=== PATIENT | male | born 1965 | race Caucasian/White ===

== ENCOUNTER 2019-09-15 06:39 | Emergency (ER) | payer OTHER, MEDICAID, SELFPAY ==
[2019-09-15] VITALS (8 sets, daily range): BP systolic 116–154; BP diastolic 53–79; PULSE 61–89; RESP 16–18; TEMP 36.8; O2SAT 96–100
--- NOTE | ~2019-09-15 | XR_ITS ---
EXAMINATION: XR chest 2V DATE: 09/15/2019 07:26 INDICATION: Chest pain. TECHNIQUE: Frontal and lateral views of the chest were obtained. COMPARISON: None. FINDINGS: There is mild atelectasis in right lower lung zone. No pleural effusion or pneumothorax. Th e heart size is normal. IMPRESSION: 1. Mild atelectasis in right lower lung zone. Reviewed, dictated and finalized at location A. S REVIEW CLERK
--- NOTE | 2019-09-15 06:49 | ECG_ITS ---
Measurements Intervals [place] Rate: 87 P: 71 HI: 130 QRS: 32 QRSD: 82 T: 36 QT: 345 QTc: 417 Interpretive Statements SINUS RHYTHM BASELINE ARTIFACT- II, III, AVF NORMAL ECG Electronically Signed On 09-15-2019 6:51:53 MILK TREATER by Joey Finney D.O.
--- NOTE | 2019-09-15 06:53 | ED.CHESTPAIN ---
HPI - Chest Pain General Chief Complaint: Chest Pain Stated Complaint: chest pain Time Seen by Provider: 09/15/19 06:49 History of Present Illness HPI narrative: Chest pain since shortly before arrival to the ED. The pain started when he arrived at work this morning. It was preceded by a breif headacvhe and dizziness. The pain was substernal. Radiated to the back and neck. Associated with heart racing and SOB. He has had similar episodes in the past due t anxiety, but it has never been this severe. He has an extensive gfamily history of heart disease, but he has no personal history. He does have high cholesterol and is a daily smoker. Related Data Allergies Allergy/AdvReac Type Severity Reaction Status Date / Time fentanyl Allergy Unknown Verified 09/15/19 06:45 Review of Systems Review of Systems: All systems reviewed & are unremarkable except as noted in HPI and below Constitutional: Constitutional: Denies chills and Denies fever(s) Cardiovascular: Cardiovascular: Reports chest pain, Reports rapid heart rate and Reports radiating jaw, neck or arm pain Respiratory: Respiratory: Reports dyspnea Gastrointestinal: Gastrointestinal: Denies abdominal pain, Reports nausea and Reports vomiting Neurologic: Reports dizziness and Reports headache(s) [facility] Past Medical History Medical History (Updated 09/15/19 @ 10:09 by Hansel Cheek MD) Anxiety Hyperlipidemia Family History Family History (Updated 09/15/19 @ 07:53 by Hansel Cheek MD) Other Heart disease Social History Social History (Updated 09/15/19 @ 07:53 by Hansel Cheek MD) Smoking status: Current every day smoker Tobacco type: cigarettes Exam Const: General: no acute distress and alert Nutritional Appearance: well nourished Orientation/consciousness: patient oriented x3 HENMT: Head: normal to inspection Eyes: Conjunctivae: conjunctivae normal Pupils: Equal, round and reactive pupils present EOM: EOMs intact bilaterally Neck: Neck: normal visual inspection Chest: Chest palpation & inspection: normal inspection of the chest Resp: Effort & Inspection: normal respiratory effort Auscultation: wheezes expiratory wheezes and throughout Cardio: Rate: regular rate Rhythm: regular rhythm Skin: General skin exam: normal color Neuro: General: patient oriented x3 and moves all extremities Speech: normal speech Extrem: General: no edema Psych: Affect: Anxious affect present Course Vital Signs Vital signs: Vital Signs Temperature 36.8 C 09/15/19 06:39 Pulse Rate 89 09/15/19 06:39 Respiratory Rate 16 09/15/19 06:39 Blood Pressure 154/79 H 09/15/19 06:39 Pulse Oximetry 100 09/15/19 06:39 Temperature 36.8 C 09/15/19 06:39 Pulse Rate 61 09/15/19 09:03 Respiratory Rate 18 09/15/19 09:03 Blood Pressure 120/53 L 09/15/19 09:03 Pulse Oximetry 98 09/15/19 09:03 MDM - Chest Pain MDM Narrative Medical decision making narrative: Symptoms seem most consistent with anxiety, which is supported by his history. He does have multiple risk factors for ACS. EKG is normal. If the baseline and 3 hour troponin are normal I will plan to discharge him. Differential Diagnosis Differential diagnosis: Likely unstable angina pectoris, atypical chest pain and chest pain Medical Records Data Attestation: I reviewed the patient's medical records. Lab Data Attestation: I reviewed the patient's lab results. Result diagrams: 09/15/19 06:54 09/15/19 06:54 Labs: Lab Results 09/15/19 09/15/19 09/15/19 Range/Units 06:54 06:54 06:54 WBC 10.3 H (4.5-10.0) K/mm3 RBC 5.16 (4.6-6.20) M/mm3 Hgb 15.0 (14.0-18.0) g/dL Hct 43.9 (42.0-52.0) % MCV 85.1 (80-100) fl MCH 29.1 (26-34) pg MCHC 34.2 (32-36) g/dl RDW 14.5 (11.5-14.5) % Plt Count 252 (150-375) k/mm3 MPV 10.0 (7.4-10.4) fl Immature Gran % (Auto) 0.4 (0-0.5) % Neut % (Auto)
[2019-09-15 07:01] LABS: Basophils Percent Auto 0.3 % (0.2-1.2); Eosinophils Absolute Auto 0.2 K/mm3 (0-0.3); Eosinophils Percent Auto 1.8 % (0-4.4); Hematocrit 43.9 % (42.0-52.0); Immature Granulocyte Absolute 0.04 K/mm3 (0.00-0.031); Immature Granulocyte Percent A 0.4 % (0-0.5); Lymphocytes Absolute Auto 1.72 K/mm3 (0.9-3.2); Lymphocytes Percent Auto 16.7 % (18.3-44.2); Mean Corpuscular HGB Conc 34.2 g/dl (32-36); Mean Corpuscular Hemoglobin 29.1 pg (26-34); Mean Corpuscular Volume 85.1 fl (80-100); Monocytes Absolute Auto 0.7 K/mm3 (0.1-0.6); Monocytes Percent Auto 6.6 % (2.6-8.5); Neutrophils Absolute Auto 7.6 K/mm3 (1.3-6.7); Neutrophils Percent Auto 74.2 % (45.5-73.1); Platelet Count Result 252 k/mm3 (150-375); Red Blood Count 5.16 M/mm3 (4.6-6.20); Red Cell Distribution Width 14.5 % (11.5-14.5); White Blood Count 10.3 K/mm3 (4.5-10.0)
[2019-09-15 07:09] LABS: INR 0.9
[2019-09-15 07:10] LABS: Partial Thromboplastin Time 29.9 SECONDS (22.3-36.8)
[2019-09-15] MEDS: IPRATROPIUM BR 0.02% INH SOLN 0.5 MG/2.5 ML VIAL INHALATION (07:12)
[2019-09-15] MEDS: ALBUTEROL SULFATE NEB 2.5 MG/0.5 ML INH 5 MG INHALATION (07:12)
[2019-09-15 07:14] LABS: Blood Urea Nitrogen 17 mg/dL (9-20); Calcium 9.3 mg/dL (8.4-10.2); Carbon Dioxide 20 mmol/L (22-30); Chloride 107 mmol/L (98-107); Estimated CRCL calculation 91 ml/min; Estimated Glomerular Filt Rate > 60; Glucose 93 mg/dL (75-110); Potassium 4.6 mmol/L (3.4-5.0); Sodium 139 mmol/L (137-145)
[2019-09-15 07:23] LABS: Troponin I < 0.012 ng/mL (0.000-0.034)
--- NOTE | 2019-09-15 07:28 | PC.NURSE ---
PT BACK FROM RADIOLOGY AT THIS TIME.
[2019-09-15 09:55] LABS: Troponin I < 0.012 ng/mL (0.000-0.034)
== END 2019-09-15 10:19 | disposition home or self-care (01) ==
PROVIDERS: Emergency Provider Emergency Medicine; PCP Internal Medicine
DX: R07.9 Chest pain, unspecified (principal); F17.210 Nicotine dependence, cigarettes, uncomplicated
CPT/HCPCS: 36415; 71046; 80048; 84484; 85025; 85610; 85730; 93005; 94640; 99284

== ENCOUNTER 2022-08-06 16:10 | Observation (INO) | payer OTHER, SELFPAY ==
--- NOTE | ~2022-08-06 | XR_ITS ---
XR chest 2V DATE: 08/06/2022 17:05 INDICATION: Chest pain, shortness of breath and fever today. History of hypertension. TECHNIQUE: PA and lateral chest COMPARISON: PA and lateral chest FINDINGS: Normal heart size. No hilar or mediastinal enlargement is evident. Chronic mild infiltrate, atelectasis or scarring in the right lower lung, not significantly changed s wali 09/15/2019. No new pulmonary infiltrate or consolidation, pleural effusion or pulmonary vascular congestion or pneumothorax is detected. IMPRESSION: No significant change since 09/15/2019 Reviewed, dictated and finalized at location B. ACE [employer]Y [employer]ATHING [employer]PAR[employer]US
--- NOTE | ~2022-08-06 | NM_ITS ---
EXAMINATION: NM natan stress w perfusion DATE: 08/07/2022 12:04 INDICATION: Chest pain TECHNIQUE: Rest images were obtained following intravenous administration of 9.6 mCi Tc99m tetrofosmi n (Myoview). The patient was infused intravenously with Lexiscan (Regadenoson). Then, 31.4 mCi Tc99m tetrofosmin (Myoview) was administered intravenously, and stress images were obtained. Data was recon structed into short axis and horizontal and vertical long axis SPECT images. Gated SPECT images were also obtained. COMPARISON: None. FINDINGS: There is no definite reversible or fixed perfusion abnormality to suggest ischemia or infar ction. There is normal left ventricular chamber size, wall motion and ejection fraction. Left ventr icular ejection fraction measures 65%. IMPRESSION: 1. Normal myocardial perfusion at rest and during stress. 2. Left ventricular ejection fraction measuring 65%. Reviewed, dictated and finalized at location A. DEVELOPER
--- NOTE | ~2022-08-06 | CT_ITS ---
EXAMINATION: CTA chest PE protocol DATE: 08/06/2022 18:32 INDICATION: Pulmonary embolism TECHNIQUE: Computed tomography angiography (CTA) of the chest was performed with 100 mL Omnipaque-350 intravenous contrast timed to evaluate the pulmonary arteries. Coronal maximum intensity projection 3D-reconstructions were created by the technologist. The dose-length product (DLP) was 734.54 mGy-cm. Automated exposure control and iterative reconstruction technique were employed. COMPARISON: None. FINDINGS: Lung parenchyma and airways: Scattered groundglass opacities and reticulations in the right middle lo be and right lower lobe, with volume loss in both. Paraseptal emphysematous change. Pleura: Pleural scarring in the right mid and lower lung. Thoracic inlet, axillae and chest wall: Unremarkable. Thoracic aorta: Mild arch calcification. Mediastinum: Calcified right hilar node. Right hilar lymphadenopathy. Heart and pericardium: Normal. Coronary artery calcifications: Mild. Upper abdomen: No significant finding. Bones: No acute osseous finding. Pulmonary arteries: Study quality: Adequate. No pulmonary emboli detected. Narrowing of the right int erlobar artery. Segmental branches of the right middle lobe and right lower lobe appear chronically t runcated, likely due to postsurgical or posttherapeutic change. IMPRESSION: No CT evidence of acute pulmonary embolus. Postsurgical/post therapeutic change in the right middle l obe and right lower lobe as well as the right hilum. Right middle and right lower lobe scar and groun dglass opacity also possibly secondary to posttherapy change. Right hilar lymphadenopathy. Emphysemat ous change. Reviewed, dictated and finalized at location K. GUARD SKATING RINK IMPRESSION: No CT evidence of acute pulmonary embolus. Postsurgical/post therapeutic change in the right middle lobe and right lower lobe as well as the right hilum. Righ t middle and right lower lobe scar and groundglass opacity also possibly second brandon to posttherapy change. Right hilar lymphadenopathy. Emphysematous change.
--- NOTE | 2022-08-06 16:26 | ECG_ITS ---
Measurements Intervals [place] Rate: 107 P: 68 [place]: 124 QRS: 40 QRSD: 67 T: 47 QT: 293 QTc: 392 Interpretive Statements SINUS TACHYCARDIA POSSIBLE LEFT ATRIAL ENLARGEMENT BASELINE ARTIFACT- V4-V6 ABNORMAL ECG COMPARED TO ECG 09/15/2019 06:44:17 SINUS TACHYCARDIA NOW PRESENT Electronically Signed On 08-06-2022 20:27:55 NAILHEAD OPERATOR by Joey Finney D.O.
[2022-08-06 16:31] VITALS: BP 159/93; RESP 0; O2SAT 100
[2022-08-06 16:32] VITALS: RESP 9; O2SAT 100
--- NOTE | 2022-08-06 16:37 | ED.CHESTPAIN ---
HPI - Chest Pain General Chief Complaint: Chest Pain Stated Complaint: CHEST/BACK PAIN, SOB, FEVER, RASH TO CHEST Time Seen by Provider: 08/06/22 16:24 Source: patient and EMS Mode of arrival: EMS History of Present Illness HPI narrative: Patient is 57 years old white male developed sudden onset of retrosternal chest pain going to his back associated with numbness and tingling of the hands bilaterally with shortness of breath started immediately on arrival to work today. Patient was trying to try sign and at that time. Pain was 6 out of 10, currently 3 out of 10. History of hypertension, hyperlipidemia, smoking, strong family history of coronary artery disease. Patient uses marijuana socially. Patient reports that his mom and 2 of his brothers and sisterS of coronary artery disease. Related Data Allergies Allergy/AdvReac Type Severity Reaction Status Date / Time fentanyl Allergy Unknown Verified 09/15/19 06:45 Review of Systems Review of Systems: All systems reviewed & are unremarkable except as noted in HPI and below PMFSH Past Medical History Medical History Anxiety Hyperlipidemia Family History Family History Other Heart disease Social History Social History Smoking status: Current every day smoker Tobacco type: cigarettes Exam Narrative: General appearance: Well-developed, well-nourished, anxious Skin: Normal color Head: Normocephalic, nontraumatic Eyes: Clear conjunctiva ENT: Oropharynx normal, ears normal, nose normal Neck: Supple, nontender Chest and respiratory: Airway patent, no respiratory distress, no accessory muscle use Heart: Regular rate/rhythm Abdomen: Soft, nontender, no organomegaly, quiet bowel sounds Vascular: Normal peripheral pulses, normal capillary refill. Musculoskeletal: Normal range of motion, nontender back Neurologic: Alert and oriented ?3, [employer] is normal as tested, no gross motor deficit Course Reevaluation(s) Reevaluation #1: Patient feeling much better, 0 out of 10 chest pain, being down in bed, comfortable, asymptomatic Date: 08/06/22 Time: 20:23 Vital Signs Vital signs: Vital Signs Respiratory Rate 0 L 08/06/22 16:31 Blood Pressure 159/93 H 08/06/22 16:31 Pulse Oximetry 100 08/06/22 16:31 Temperature 39.0 C H 08/06/22 16:43 Pulse Rate 103 H 08/06/22 16:43 Respiratory Rate 18 08/06/22 16:43 Blood Pressure 157/76 H 08/06/22 16:43 Pulse Oximetry 100 08/06/22 16:43 Oxygen Delivery Room Air 08/06/22 16:43 MDM - Chest Pain MDM Narrative Medical decision making narrative: Patient 57 years old white male came by ambulance to the emergency room from work complaining of sudden onset of retrosternal chest pain going to his back associated with shortness of breath and numbness tingling of the hands bilaterally. History of anxiety. Pain was 6 out of 10, on arrival 3 out of 10. Physical examination showed no significant abnormality except tachyarrhythmia and restlessness. Vital signs showed temperature of 39.0 with sinus tachycardia. Patient had history of hypertension, hyperlipidemia, tobacco dependence, strong family history of coronary artery disease. Cardiac score is 5. Labs, chest x-ray, EKG, COVID swab ordered. Patient received aspirin, nitroglycerin sublingual, Tylenol. Patient's symptoms improved over 30 minutes to 0 out of 10. Work-up showed EKG showed sinus tachycardia with left atrial enlargement otherwise nonspecific. Blood work-up showed no acute abnormalities. Except elevated D-dimer, CTA P
[2022-08-06 16:43] VITALS: BP 157/76; PULSE 103; RESP 18; TEMP 39; O2SAT 100
[2022-08-06 17:46] LABS: Basophils Percent Auto 0.4 % (0.2-1.2); Eosinophils Absolute Auto 0.1 K/mm3 (0-0.3); Eosinophils Percent Auto 0.8 % (0-4.4); Hematocrit 42.9 % (42.0-52.0); Hemoglobin 14.4 g/dL (14.0-18.0); Immature Granulocyte Absolute 0.03 K/mm3 (0.00-0.031); Immature Granulocyte Percent A 0.4 % (0-0.5); Lymphocytes Absolute Auto 0.23 K/mm3 (0.9-3.2); Mean Corpuscular HGB Conc 33.6 g/dl (32-36); Mean Corpuscular Hemoglobin 28.5 pg (26-34); Mean Platelet Volume 9.5 fl (7.4-10.4); Monocytes Absolute Auto 0.4 K/mm3 (0.1-0.6); Monocytes Percent Auto 5.5 % (2.6-8.5); Neutrophils Absolute Auto 6.8 K/mm3 (1.3-6.7); Neutrophils Percent Auto 89.9 % (45.5-73.1); Platelet Count Result 291 k/mm3 (150-375); Red Blood Count 5.05 M/mm3 (4.6-6.20); Red Cell Distribution Width 13.9 % (11.5-14.5); White Blood Count 7.6 K/mm3 (4.5-10.0)
[2022-08-06 17:56] LABS: Prothrombin Time 13.2 Seconds (11.1-14.7)
[2022-08-06 17:57] LABS: Partial Thromboplastin Time 31.8 SECONDS (22.3-36.8)
[2022-08-06 18:03] LABS: Alanine Aminotransferase 15 U/L (6-50); Albumin Level 4.4 g/dL (3.5-5.1); Alkaline Phosphatase 109 U/L (38-126); Anion Gap 7 mmol/L (8-16); Aspartate Amino Transferase 22 U/L (17-59); Bilirubin,Total 0.6 mg/dL (0.2-1.3); Blood Urea Nitrogen 12 mg/dL (9-20); Calcium 9.2 mg/dL (8.4-10.2); Carbon Dioxide 23 mmol/L (22-30); Chloride 106 mmol/L (98-107); Estimated Glomerular Filt Rate > 60; Glucose 86 mg/dL (65-110); Lipase 42 U/L (23-300); Potassium 4.4 mmol/L (3.4-5.0); Sodium 136 mmol/L (137-145)
[2022-08-06 18:08] LABS: D Dimer 0.65 ug/mL (<0.48)
[2022-08-06] MEDS: LORazepam (*CRX) 0.5 MG TABLET 1 MG PO (18:11)
[2022-08-06] MEDS: ASPIRIN 81 MG CHEWABLE TABLET 324 MG PO (18:12)
[2022-08-06 18:21] LABS: Influenza A QL RT-PCR Negative (Negative); Influenza B QL RT-PCR Negative (Negative); SARS-CoV-2 RNA PCR Positive
[2022-08-06 18:29] LABS: Troponin I < 0.012 ng/mL (0.000-0.034)
--- NOTE | 2022-08-06 19:59 | PM.IMHP ---
H&P: HPI History of Present Illness Date/Time: 08/06/22 19:59 Chief Complaint: Chest pain Narrative: This is a 57-year-old male with past medical history significant for tobacco dependence, patient has lost 3 siblings in the past 7 months secondary to heart disease. Presents to the emergency room after having episode of retrosternal chest pain with radiation to the back in between shoulder blades at the time of my visit he rated a 1/10 in intensity pain is nonreproducible, no alleviating factor no exacerbating factors, has lasted for most of the day, has had some sweats and fever, tested positive for COVID while in the emergency room has had cough productive of clear phlegm denies shortness of breath, no nausea, no vomiting, no palpitations, no syncope or near syncope no PND, no orthopnea. Preliminary workup was significant for: Serology was positive for COVID-19. A chest x-ray was reported as; FINDINGS: Normal heart size. No hilar or mediastinal enlargement is evident. Chronic mild infiltrate, atelectasis or scarring in the right lower lung, not significantly changed since 09/15/2019. No new pulmonary infiltrate or consolidation, pleural effusion or pulmonary vascular congestion or pneumothorax is detected.? IMPRESSION: No significant change since 09/15/2019? A CT angio of the chest PE protocol was reported as: FINDINGS: Normal heart size. No hilar or mediastinal enlargement is evident. Chronic mild infiltrate, atelectasis or scarring in the right lower lung, not significantly changed since 09/15/2019. No new pulmonary infiltrate or consolidation, pleural effusion or pulmonary vascular congestion or pneumothorax is detected.? IMPRESSION: No significant change since 09/15/2019? Review of Systems Review of Systems: Chest pain, fevers, sweats, cough productive of clear phlegm. Constitutional: Constitutional: Reports fever(s), Reports night sweats and Reports poor appetite Eyes: Eyes: Denies change in vision ENT: Denies dysphagia, Denies vertigo, Denies dizziness and Denies odynophagia Cardiovascular: Cardiovascular: Reports chest pain, Denies irregular heart rhythm, Denies leg edema, Denies lightheadedness, Denies radiating jaw, neck or arm pain and Denies palpitations Respiratory: Respiratory: Reports cough (Productive of clear phlegm) and Denies dyspnea Gastrointestinal: Gastrointestinal: Denies abdominal pain, Denies dyspepsia, Denies heartburn, Denies diarrhea, Denies nausea and Denies vomiting Genitourinary: Genitourinary: Denies dysuria Musculoskeletal: Musculoskeletal: Denies back pain, Denies myalgias, Denies joint swelling and Denies muscle weakness Integumentary/Breasts: Skin/Breast: Denies rash Neurologic: Denies focal weakness and Denies Sensory deficit (Neuro) Psychiatric: Psychiatric: Reports no additional psychiatric complaints and Reports as per HPI Endocrine: Endocrine: Denies cold intolerance, Denies flushing, Denies heat intolerance, Denies polyphagia, Denies polydipsia and Denies palpitations Hematologic/Lymphatic: Hematologic/Lymphatic: Reports no additional hematologic/lymphatic complaints and Reports as per HPI Allergic/Immunologic: Allergic/Immunologic: Reports no additional allergic/immunologic complaints and Reports as per HPI PMFSH Past Medical History Medical History (Updated 08/06/22 @ 22:15 by Vernell Oden MD) Anxiety Hyperlipidemia Family History Family History Other Heart disease Social History Social History Smoking status: Current every day smoker Tobacco type: cigarettes Meds Home Medications and Allergies Allergies Allergy/AdvReac Type Severity Reaction Status Date / Time fentanyl Allergy Unknown Verified 09/15/19 06:45 Vital Signs Vital Signs - 24 hr 08/06/22 16:43 08/06/22 16:31 Temperature 102.2 F H Pulse Rate 103 H Respiratory Rate 18 0 L
[2022-08-06] MEDS: ACETAMINOPHEN 325 MG TABLET 650 MG PO (20:00)
[2022-08-06] MEDS: IBUPROFEN 600 MG TABLET PO (20:01)
[2022-08-06 20:06] LABS: Troponin I < 0.012 ng/mL (0.000-0.034)
[2022-08-06 20:30] VITALS: TEMP 36.7
[2022-08-06 22:40] VITALS: BP 124/76; PULSE 72; RESP 16; TEMP 36.7; TEMP 36.9; O2SAT 97
[2022-08-06 23:00] VITALS: BP 109/60; PULSE 77; RESP 20; TEMP 36.4; O2SAT 100
[2022-08-06 23:10] VITALS: BMI 25.0
[2022-08-06 23:35] LABS: Troponin I < 0.012 ng/mL (0.000-0.034)
--- NOTE | 2022-08-06 23:57 | ADMGEN ---
This patient, Malik Jimenez, was admitted to IMU Room 212-01. Patient/family oriented to hospital policies and general routines including ID bracelet, bed and alarms, visiting hours, pain management, procedures, bathroom and other care routines, personal items, smoking policy, room service/diet, and visiting hours. Information on how to activate the Rapid Response Team has been discussed. Patient/Family are encouraged to report perceived risks to care and to ask questions if they do not understand what they are told or what they should do.
[2022-08-07] VITALS (9 sets, daily range): BP systolic 107–158; BP diastolic 52–80; PULSE 62–103; RESP 14–20; TEMP 37–37.4; O2SAT 97–100
--- NOTE | 2022-08-07 07:57 | PM.IMPN ---
Progress Note: A&P Assessment and Plan (1) Chest pain: Code(s): R07.9 - Chest pain, unspecified Status: Acute Assessment and Plan: Admit to IMU Ruled out for acute pulmonary embolism Will do serial troponins A stress test in a.m. EKG reviewed Chest x-ray reviewed (2) COVID: Code(s): U07.1 - COVID-19 Status: Acute Assessment and Plan: Supportive care (3) Tobacco dependence: Code(s): F17.200 - Nicotine dependence, unspecified, uncomplicated Status: Acute Assessment and Plan: Patient is and the process of quitting Nicotine patch as needed (4) Anxiety: Code(s): F41.9 - Anxiety disorder, unspecified Status: Acute Assessment and Plan: Continue bupropion Subjective Date/time seen: 08/07/22 07:57 Exam Narrative: General: No acute distress.? Well-developed and well-groomed? Mental Status/Psych: Awake, alert and oriented to person and place with clear speech. Neutral mood and affect. Pleasant and cooperative. Skin: Skin fair, warm, dry and intact without rashes or lesions. No open wounds. Good turgor.? HEENT: Normocephalic. Conjunctivae are clear. Sclera is non-icteric. EOM intact. PERRL. Grossly normal hearing. Oral mucosa pink and moist. Tongue midline. Oropharynx within normal limits. Neck: Supple. Thyroid without nodularity. Trachea midline. No JVD. Heart: S1 and S2 regular rate and rhythm. No murmurs, gallops, or rubs auscultated. Chest: Respirations even and unlabored. Lung sounds are clear to auscultation in all lobes bilaterally without wheezes, rhonchi, or rales. Abdomen: Soft, round and non-tender to palpation.? Bowel sounds present in all 4 quadrants. Extremities:? Grossly normal ROM all extremities. No edema. Radial and dorsalis pedis pulses +2 bilaterally. Neurological: No focal deficits. Cranial nerves 2-12 grossly intact.? Objective Data Vital Signs Vital Signs: Vital Signs - 24 hr 08/06/22 16:43 08/06/22 16:31 08/06/22 20:30 Temperature 102.2 F H 98.0 F Pulse Rate 103 H Respiratory Rate 18 0 L Blood Pressure 157/76 H 159/93 H Pulse Oximetry 100 100 Oxygen Delivery Room Air 08/06/22 22:40 08/06/22 16:32 08/06/22 23:00 Temperature 98.5 F 97.5 F L Pulse Rate 77 Respiratory Rate 9 L 20 Blood Pressure 109/60 Pulse Oximetry 100 100 Oxygen Delivery 08/07/22 00:00 08/07/22 00:00 08/06/22 22:40 Temperature 98.0 F Pulse Rate 74 72 72 Respiratory Rate 20 16 Blood Pressure 124/76 Pulse Oximetry 100 97 Oxygen Delivery Room Air 08/07/22 02:00 08/07/22 04:00 08/07/22 04:00 Temperature 98.6 F Pulse Rate 62 85 70 Respiratory Rate 20 Blood Pressure 107/57 L Pulse Oximetry 97 Oxygen Delivery 08/07/22 04:00 08/07/22 06:00 Temperature Pulse Rate 70 86 Respiratory Rate 20 Blood Pressure Pulse Oximetry 100 Oxygen Delivery Room Air Intake/Output Intake/Output: Intake & Output 08/04/22 08/05/22 08/06/22 08/07/22 23:59 23:59 23:59 23:59 Intake Total 200 Balance 200 Meds/Results Medications: Active Medications Generic Name Dose Route Start Last Admin Trade Name Freq PRN Reason Stop Dose Admin Acetaminophen 650 mg 08/06/22 20:31 Acetaminophen 325 Mg Tablet PO Q4H PRN Mild Pain (1-3) or Fever Amlodipine Besylate 5 mg 08/07/22 09:00 Amlodipine Besylate 5 Mg Tablet PO DAILY [facility] Aspirin 81 mg 08/07/22 09:00 Aspirin 81 Mg Enteric Tablet PO QAM [facility] Atorvastatin Calcium 20 mg 08/07/22 18:00 Atorvastatin 20 Mg Tablet PO QPM [facility] Bupropion HCl 100 mg 08/07/22 09:00 Bupropion Hcl Sr (12hr) 100 Mg Tabcr PO Q12H [facility] Nitroglycerin 0.4 mg 08/06/22 16:52 Nitroglycerin Sl 0.4 Mg Tablet SUBLINGUAL Q5MIN PRN Chest Pain Ondansetron HCl 4 mg 08/07/22 07:10 Ondansetron Inj 4 Mg/2 Ml Vial IV PUSH Q4H PRN Nausea And Vomiting Radiology Results: ITS Impressions
[2022-08-07 08:22] LABS: CRP 3.4 mg/dL (<1.0); Cholesterol 207 mg/dL (0-200); HDL Direct 31 mg/dL; Triglycerides 91 mg/dL (<150)
[2022-08-07 08:30] LABS: LDL Cholesterol Direct 123 mg/dL
[2022-08-07 08:38] LABS: Hemoglobin A1C 5.3 % (<5.7)
[2022-08-07] MEDS: buPROPion HCL SR (12HR) 100 MG TABCR PO (09:25)
[2022-08-07] MEDS: amLODIPine BESYLATE 5 MG TABLET PO (09:25)
[2022-08-07] MEDS: ASPIRIN 81 MG ENTERIC TABLET PO (09:25)
--- NOTE | 2022-08-07 16:14 | PM.DS ---
DS: Admitting Diagnosis Discharge Date 08/07/2022 1601 Admitting Diagnosis Chest pain COVID19 infection DS: Discharge Diagnosis Discharge Diagnosis (1) Chest pain: Code(s): R07.9 - Chest pain, unspecified Status: Acute (2) COVID: Code(s): U07.1 - COVID-19 Status: Acute (3) Tobacco dependence: Code(s): F17.200 - Nicotine dependence, unspecified, uncomplicated Status: Chronic (4) Anxiety: Code(s): F41.9 - Anxiety disorder, unspecified Status: Acute DS: Summary Hospital Course Reason for hospitalization: chest pain Hospital Course: Malik Jimenez is a 57-year-old male with tobacco dependence and self-reported anxiety. He presented to the ED for evaluation of substernal chest pain with radiation to his back between shoulder blades for approximately one day. The pain did not radiate to his neck, jaw or down either arm. The pain is nonreproducible and without exacerbating or alleviating factors. No dizziness, abd pain, N/V/D, palpitations, syncope, near syncope, orthopnea or PND. He reported associated cough with clear phlegm, some sweating and subjective fever. He also reported anxiety and loss of 3 siblings in the past 7 months secondary to heart disease.?In the ED, he tested positive for SARS-COV2. Chest x-ray showed chronic mild infiltrate/scarring of the right lower lung unchanged from 09/15/2019 and no new acute disease. CTA chest was negative for PE. EKG showed sinus tachycardia without ischemic changes. He was treated with full strength aspirin, sublingual nitroglycerin x1, and 1000 mg acetaminophen. Vitals in ED showed temp 39C, HR 103, RR 18, BP 157/76 and spO2 100% room air. She was admitted to IMU for further evaluation of chest pain. He was placed in covid19 specific isolation. He did not require supplemental O2 and therefore Remdesivir and dexamethasone were not initiated. He was unvaccinated for covid19 and was counseled on obtaining vaccination at discharge. Serial troponin I were obtained and remained within normal limits x 3. CBC and CMP were unremarkable. CRP was mildly elevated 3.4. Lipid panel showed triglycerides 91, LDL 123, and HDL 31. Apo B was drawn but pending at the time of discharge. ASCVD 10-year risk was 27% and lifetime risk 69%. He was counseled on risk factors, quitting smoking and lifestyle changes. Lipitor was increased to 40 mg PO daily. Amlodipine was initially increased, however, repeat blood pressures were less than 120/80 and therefore this medication was continued at the same dose. He was counseled on resuming Wellbutrin for smoking cessation and Buspar 7.5 mg PO BID was added for anxiety. He reported anxiety was notably centered around fear of from heart disease. He denied suicidal or homicidal ideation. NM Lexiscan was obtained and negative for ST/T-wave changes or ischemia. Telemetry was negative for arrhythmia. He was ambulated in his room by nursing prior to discharge and did not have desaturation or c/o dyspnea. He reported readiness for discharge and was discharged home in stable condition. He was counseled on supportive care and quarantine for COVID19. Time spent discussing smoking cessation with patient: more than 10 minutes Status at Discharge Cognitive/behavioral status at discharge: Awake, AOx4. Functional status at discharge: independent ambulation Overall status at discharge: patient is back to baseline Time Spent with Patient Time attestation: Total time spent providing and/or coordinating discharge services: Time spent: Greater than 30 minutes Exam Narrative: General:?No acute respiratory distress. Well developed adult male. Temp 98.7F, HR 103, RR 18, BP 127/70, spO2 98% room air. HEENT:??Normocephalic. Pupils equal and round. Sclera anicteric. Mucous membranes moist. Neck:??No JVD. Supple without lymphadenopathy. Respiratory:?Lungs sounds clear to auscultation bilaterally. RR unlabored at rest. Cardiovascular:??Regular rate
--- NOTE | 2022-08-07 22:18 | EST_ITS ---
Patient Info Name: Malik Jimenez Age: 57 years : 1965 Gender: Male Ht: 68 in Wt: 185 lbs BSA: 2.03 m2 HR: 90 bpm BP: 149 / 72 mmHg Heart Rhythm: Sinus Rhythm Exam Date: 08/07/2022 11:21 AM Exam Location: [facility] Stress Patient Status: Inpatient Admit Date: 08/06/2022 Staff Ordering Physician: Vernell Oden MD Attending Provider: Vernell Oden MD Exercise Technologist: Andreina Edge CT Nurse: JOHNNY BARNES Exam Type: CA stress natan w NM Study Info Indications R07.9 - Chest pain, unspecified A regadenoson stress test was performed. Summary 1. No abnormal ST/T wave changes diagnostic of ischemia with Lexiscan. 2. Please correlate with nuclear medicine images, reported separately. Protocol: Lexiscan Stress ECG Details Stage: REST Duration (min): 0 min : 45 sec HR (bpm): 91 SBP (mmHg): 149 DBP (mmHg): 72 Stage: REST Duration (min): 5 min : 27 sec HR (bpm): 93 SBP (mmHg): 149 DBP (mmHg): 72 Stage: STAGE 1 Duration (min): 0 min : 59 sec HR (bpm): 114 SBP (mmHg): 142 DBP (mmHg): 56 Stage: RECOVERY Duration (min): 1 min : 0 sec HR (bpm): 112 SBP (mmHg): 142 DBP (mmHg): 56 Stage: RECOVERY Duration (min): 2 min : 0 sec HR (bpm): 114 SBP (mmHg): 142 DBP (mmHg): 56 Stage: RECOVERY Duration (min): 3 min : 0 sec HR (bpm): 119 SBP (mmHg): 138 DBP (mmHg): 58 Stage: RECOVERY Duration (min): 3 min : 27 sec HR (bpm): 110 SBP (mmHg): 138 DBP (mmHg): 58 Rest HR: 93 bpm Peak HR: 119 bpm Rest Sys BP: 149 mmHg Peak Sys BP: 142 mmHg Max Pred HR: 164 bpm % Max Pred HR: 73 % Target HR: 139 bpm Max RPP: 16,898 bpm*mmHg Total Time: 1 min : 0 sec Rest [place] BP: 72 mmHg Peak [place] BP: 56 mmHg Total Dose: 0.4 mg Resting ECG Sinus rhythm. Stress ECG Sinus tachycardia. No abnormal ST/T wave changes diagnostic of ischemia with Lexiscan. Arrhythmias None. Report Signatures
[2022-08-11 20:13] LABS: Apolipoprotein B 117 mg/dL (<90)
== END 2022-08-07 18:01 | disposition home or self-care (01) ==
LOC: ANHED 20:31 → ANHIMU 08-07 00:13
PROVIDERS: Nurse Practitioner Family; Admitting Provider Internal Medicine; Emergency Provider Emergency Medicine; PCP Internal Medicine; Visit Provider Student in an Organized Health Care Education/Training Program
DX: R07.9 Chest pain, unspecified (principal); U07.1 COVID-19; F41.9 Anxiety disorder, unspecified; I10 Essential (primary) hypertension; E78.5 Hyperlipidemia, unspecified; R00.0 Tachycardia, unspecified; R20.0 Anesthesia of skin; R20.2 Paresthesia of skin; R91.8 Other nonspecific abnormal finding of lung field; I70.0 Atherosclerosis of aorta; R59.0 Localized enlarged lymph nodes; R94.31 Abnormal electrocardiogram [ECG] [EKG]; F17.210 Nicotine dependence, cigarettes, uncomplicated; F12.90 Cannabis use, unspecified, uncomplicated; Z82.49 Family history of ischemic heart disease and other diseases of the circulatory system
CPT/HCPCS: 36415; 71046; 71275; 78452; 80053; 80061; 82172; 83036; 83690; 84484; 85025; 85380; 85610; 85730; 86140; 87636; 93005; 93017; 99285; A9270; A9502; G0378; G0379; J2785; Q9967

== ENCOUNTER 2022-08-12 11:28 | Emergency (ER) | payer OTHER, SELFPAY ==
--- NOTE | ~2022-08-12 | XR_ITS ---
EXAMINATION: XR chest 2V DATE: 08/12/2022 12:38 INDICATION: Shortness of breath. TECHNIQUE: Frontal and lateral views of the chest were obtained. COMPARISON: Chest 2 views 08/06/2022, 09/15/2019, chest CT 08/06/2022 FINDINGS: There are mild airspace opacities in right mid and lower lung zones, stable from 09/15/2019. No pleural effusion or pneumothorax. The heart size is normal. Calcified right hilar lymph nodes are consistent with old granulomatous disease. IMPRESSION: 1. Mild chronic lung disease in right mid and lower lung zones, stable from 09/15/19. Reviewed, dictated and finalized at location A. SSEMBLY SUPERVISOR IMPRESSION: 1. Mild chronic lung disease in right mid and lower lung zones, stable from 08/23 12/08.
[2022-08-12 12:03] VITALS: BP 159/75; PULSE 74; RESP 20; TEMP 36.6; O2SAT 100
--- NOTE | 2022-08-12 12:07 | ECG_ITS ---
Measurements Intervals [place] Rate: 70 P: 74 [place]: 107 QRS: 53 QRSD: 73 T: 47 QT: 383 QTc: 416 Interpretive Statements SINUS RHYTHM WITH SHORT [place] INTERVAL BASELINE ARTIFACT- I, III, AVR, AVL, AVF, V1 BORDERLINE ECG COMPARED TO ECG 08/06/2022 16:31:41 SINUS RHYTHM NOW PRESENT Electronically Signed On 08-12-2022 14:06:47 PHYSIOLOGIST by Joey Finney D.O.
[2022-08-12 12:41] LABS: Basophils Percent Auto 0.2 % (0.2-1.2); Eosinophils Absolute Auto 0.1 K/mm3 (0-0.3); Eosinophils Percent Auto 1.6 % (0-4.4); Hematocrit 47.4 % (42.0-52.0); Immature Granulocyte Absolute 0.01 K/mm3 (0.00-0.031); Immature Granulocyte Percent A 0.2 % (0-0.5); Lymphocytes Absolute Auto 1.14 K/mm3 (0.9-3.2); Lymphocytes Percent Auto 25.4 % (18.3-44.2); Mean Corpuscular HGB Conc 33.8 g/dl (32-36); Mean Corpuscular Hemoglobin 28.4 pg (26-34); Mean Corpuscular Volume 84.2 fl (80-100); Monocytes Absolute Auto 0.3 K/mm3 (0.1-0.6); Monocytes Percent Auto 7.1 % (2.6-8.5); Neutrophils Absolute Auto 2.9 K/mm3 (1.3-6.7); Neutrophils Percent Auto 65.5 % (45.5-73.1); Platelet Count Result 196 k/mm3 (150-375); Red Blood Count 5.63 M/mm3 (4.6-6.20); Red Cell Distribution Width 13.9 % (11.5-14.5); White Blood Count 4.5 K/mm3 (4.5-10.0)
[2022-08-12 12:53] LABS: Alanine Aminotransferase 22 U/L (6-50); Alkaline Phosphatase 94 U/L (38-126); Anion Gap 6 mmol/L (8-16); Aspartate Amino Transferase 30 U/L (17-59); Bilirubin,Total 0.5 mg/dL (0.2-1.3); Blood Urea Nitrogen 14 mg/dL (9-20); Calcium 8.6 mg/dL (8.4-10.2); Carbon Dioxide 25 mmol/L (22-30); Chloride 107 mmol/L (98-107); Estimated CRCL calculation 87 ml/min; Estimated Glomerular Filt Rate > 60; Glucose 98 mg/dL (65-110); Potassium 4.3 mmol/L (3.4-5.0); Sodium 138 mmol/L (137-145)
--- NOTE | 2022-08-12 15:02 | ED.SOB ---
HPI - SOB/Dyspnea General Chief Complaint: Shortness of Breath/Dyspnea Stated Complaint: covid+, sob Time Seen by Provider: 08/12/22 14:23 History of Present Illness HPI Narrative: 57-year-old male with a history of hypertension, hyperlipidemia, 30+ years tobacco use presenting with shortness of breath. Patient states that he was diagnosed with COVID-19 approximately 5 days ago. He was admitted at that time and underwent a stress test and had a CT of his chest. He was able to be discharged home after everything looked good. States that he has been improving overall. States that last night he had an episode of feeling very short of breath while in bed. States that he had to sit up and take several deep breaths. States that this happened again this morning. He denies any chest pain, palpitations, lightheadedness. States that he was just concerned that he might be going in the wrong direction with his COVID. No fevers or chills, abdominal pain, nausea or vomiting, diarrhea, leg swelling, leg pain. Related Data Home Medications Medication Instructions Recorded Confirmed amlodipine 5 mg tablet 5 mg PO DAILY 08/06/22 08/06/22 bupropion HCl 100 mg tablet,12 hr 100 mg PO Q12H 08/06/22 08/06/22 sustained-release Allergies Allergy/AdvReac Type Severity Reaction Status Date / Time fentanyl Allergy Unknown Verified 09/15/19 06:45 Review of Systems Review of Systems: All systems reviewed & are unremarkable except as noted in HPI and below PMFSH Past Medical History Medical History Anxiety Hyperlipidemia Family History Family History Mother Heart disease Father Heart disease Sibling Heart disease Social History Social History Smoking packs per day: 1 Smoking cigarettes per day: 20.0 Smoking status: Current every day smoker Tobacco type: cigarettes Drinks per week: 2 Substance use: never Substance use type: does not use Lack of Transportation: No Lack of Food: Never True Current Housing: I Have Housing Concerned About Future Housing: No Difficulty Paying Gas/Electric Bills: No Difficulty Paying for Meds: No Currently Unemployed: No Education: High School Diploma/GED Difficulty w/ Childcare or Family Care: No Spiritual care concerns: No Exam Narrative: GENERAL: Well-appearing, well-nourished, and in no acute distress. HEAD: Normocephalic, atraumatic. EYES: PERRLA and EOMI. ENT: Nares clear, no rhinorrhea or epistaxis. Mucous membranes moist. NECK: Supple. CHEST: Diminished breath sounds especially in the bases with minimal air movement, no wheezing HEART: Regular rate and rhythm. No murmur heard. Normal peripheral pulses. ABDOMEN: Soft, nontender, nondistended, normal active bowel sounds. EXTREMITIES: Normal range of motion. No edema. SKIN: Dry flaking skin bilateral lower extremities and upper extremities NEURO: No focal deficits. Alert and oriented x3. PSYCH: Normal mood and affect. Course Vital Signs Vital signs: Vital Signs Temperature 98 F 08/12/22 12:03 Pulse Rate 74 08/12/22 12:03 Respiratory Rate 20 08/12/22 12:03 Blood Pressure 159/75 H 08/12/22 12:03 Pulse Oximetry 100 08/12/22 12:03 Oxygen Delivery Room Air 08/12/22 12:03 Temperature 98 F 08/12/22 12:03 Pulse Rate 67 08/12/22 18:08 Respiratory Rate 18 08/12/22 18:08 Blood Pressure 140/78 08/12/22 18:08 Pulse Oximetry 99 08/12/22 18:08 Oxygen Delivery Room Air 08/12/22 12:03 MDM - SOB/Dyspnea MDM Narrative Medical decision making narrative: Patient is a 57-year-old male presenting with 2 episodes of dyspnea in the setting of recent COVID diagnosis. Patient is hypertensive, though his vitals are within normal limits. He is saturating 100% on room air. Exam is remarkable for diminish
[2022-08-12 15:49] VITALS: PULSE 69; RESP 14
[2022-08-12] MEDS: ALBUTEROL SULFATE NEB 2.5 MG/3 ML INH 5 MG INHALATION (15:49)
[2022-08-12] MEDS: IPRATROPIUM BR 0.02% INH SOLN 0.5 MG/2.5 ML VIAL INHALATION (15:49)
[2022-08-12 16:17] VITALS: PULSE 80; RESP 15
[2022-08-12 18:08] VITALS: BP 140/78; PULSE 67; RESP 18; O2SAT 99
== END 2022-08-12 18:10 | disposition home or self-care (01) ==
PROVIDERS: Emergency Medicine; Emergency Provider Emergency Medicine; PCP Internal Medicine
DX: U07.1 COVID-19 (principal); R06.02 Shortness of breath; I10 Essential (primary) hypertension; E78.5 Hyperlipidemia, unspecified; F41.9 Anxiety disorder, unspecified; F17.210 Nicotine dependence, cigarettes, uncomplicated; J84.9 Interstitial pulmonary disease, unspecified
CPT/HCPCS: 36415; 71046; 80053; 85025; 93005; 94640; 99284

== ENCOUNTER 2023-08-17 08:06 | Emergency (ER) | payer OTHER, SELFPAY ==
[2023-08-17] VITALS (14 sets, daily range): BP systolic 132–143; BP diastolic 71–79; PULSE 61–72; RESP 12–24; TEMP 36.6; O2SAT 99–100
--- NOTE | 2023-08-17 08:06 | ECG_ITS ---
Measurements Intervals [place] Rate: 67 P: 76 [place]: 118 QRS: 25 QRSD: 82 T: 36 QT: 374 QTc: 397 Interpretive Statements SINUS RHYTHM WITH SHORT IN INTERVAL BORDERLINE ECG COMPARED TO ECG 08/12/2022 12:20:57 NO SIGNIFICANT CHANGES Electronically Signed On 08-17-2023 11:01:48 TRUSS MAKER by Joey Finney D.O.
[2023-08-17 08:22] LABS: Basophils Percent Auto 0.4 % (0.2-1.2); Eosinophils Absolute Auto 0.1 K/mm3 (0-0.3); Eosinophils Percent Auto 1.1 % (0-4.4); Hematocrit 42.3 % (42.0-52.0); Hemoglobin 13.5 g/dL (14.0-18.0); Immature Granulocyte Absolute 0.02 K/mm3 (0.00-0.031); Immature Granulocyte Percent A 0.2 % (0-0.5); Lymphocytes Absolute Auto 1.44 K/mm3 (0.9-3.2); Lymphocytes Percent Auto 15.9 % (18.3-44.2); Mean Corpuscular HGB Conc 31.9 g/dl (32-36); Mean Corpuscular Hemoglobin 28.2 pg (26-34); Mean Corpuscular Volume 88.5 fl (80-100); Mean Platelet Volume 9.5 fl (7.4-10.4); Monocytes Absolute Auto 0.6 K/mm3 (0.1-0.6); Monocytes Percent Auto 6.7 % (2.6-8.5); Neutrophils Absolute Auto 6.8 K/mm3 (1.3-6.7); Neutrophils Percent Auto 75.7 % (45.5-73.1); Platelet Count Result 276 k/mm3 (150-375); Red Blood Count 4.78 M/mm3 (4.6-6.20); Red Cell Distribution Width 14.2 % (11.5-14.5)
[2023-08-17 08:33] LABS: Alanine Aminotransferase 13 U/L (6-50); Albumin Level 3.8 g/dL (3.5-5.1); Alkaline Phosphatase 92 U/L (38-126); Anion Gap 7 mmol/L (8-16); Aspartate Amino Transferase 22 U/L (17-59); Bilirubin,Total 0.3 mg/dL (0.2-1.3); Blood Urea Nitrogen 13 mg/dL (9-20); Calcium 9.1 mg/dL (8.4-10.2); Carbon Dioxide 25 mmol/L (22-30); Chloride 108 mmol/L (98-107); Estimated CRCL calculation 72 ml/min; Estimated Glomerular Filt Rate > 60; Glucose 93 mg/dL (65-110); Potassium 5.4 mmol/L (3.4-5.0); Sodium 140 mmol/L (137-145)
[2023-08-17] MEDS: SODIUM CHLORIDE 0.9% IV 1,000 ML 999 ML IV CONT (08:55)
[2023-08-17] MEDS: MECLIZINE HCL 25 MG TABLET PO (08:55)
--- NOTE | 2023-08-17 10:24 | ED.GENADULT ---
HPI - General Adult General Chief complaint: Syncope Stated complaint: sudden onset dizziness, blurred vision Time Seen by Provider: 08/17/23 08:09 History of Present Illness HPI narrative: Patient is a 58-year-old male who presents ER with dizziness. 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 He felt slightly flushed. No vomiting. No diaphoresis. Short lived. It is reproduced by turning his head to the right at this time. No chest pain or chest pressure. No focal weakness or numbness to any arm or leg. No slurred speech. Related Data Home Medications Medication Instructions Recorded Confirmed amlodipine 5 mg tablet 5 mg PO DAILY 08/06/22 08/06/22 bupropion HCl 100 mg tablet,12 hr 100 mg PO Q12H 08/06/22 08/06/22 sustained-release Allergies Allergy/AdvReac Type Severity Reaction Status Date / Time fentanyl Allergy Unknown Verified 08/17/23 08:15 Review of Systems Review of Systems: All systems reviewed & are unremarkable except as noted in HPI and below Constitutional: Constitutional: Reports no additional constitutional complaints ENT: Reports vertigo, Denies nasal congestion and Denies sore throat Cardiovascular: Cardiovascular: Reports no additional cardiovascular complaints Respiratory: Respiratory: Reports no additional respiratory complaints Neurologic: Reports dizziness, Denies syncope, Denies headache(s), Denies focal weakness and Denies numbness PMFSH Past Medical History Medical History Anxiety Hyperlipidemia Family History Family History Mother Heart disease Father Heart disease Sibling Heart disease Social History Social History Smoking packs per day: 1 Smoking cigarettes per day: 20.0 Smoking status: Current every day smoker Tobacco type: cigarettes Drinks per week: 2 Substance use: never Substance use type: does not use Lack of Transportation: No Lack of Food: Never True Current Housing: I Have Housing Concerned About Future Housing: No Difficulty Paying Gas/Electric Bills: No Difficulty Paying for Meds: No Currently Unemployed: No Education: High School Diploma/GED Difficulty w/ Childcare or Family Care: No Spiritual care concerns: No Exam Narrative: GENERAL: Well-appearing, well-nourished, and in no acute distress. HEAD: Normocephalic, atraumatic. EYES: PERRL and EOMI. Right gaze nystagmus. ENT: Mucous membranes moist. Small Axe burden in the ear canals bilaterally but no obstruction of the TM. TMs normal an opaque bilaterally. CHEST: Clear to auscultation. No respiratory distress. HEART: Regular rate and rhythm. Normal peripheral pulses. EXTREMITIES: Normal range of motion. No edema. SKIN: Warm, dry, no rash. NEURO: No upper or lower extremity drift. No facial asymmetry. No slurred speech.Alert and oriented x3. PSYCH: Normal mood and affect. Course Course Emergency Course: Dizziness resolved with meclizine fluid. Discussed diagnosis and treatment plan. Discharge home. Vital Signs Vital signs: Vital Signs Temperature 98 F 08/17/23 08:02 Pulse Rate 66 08/17/23 08:02 Respiratory Rate 20 08/17/23 08:02 Blood Pressure 132/74 08/17/23 08:02 Pulse Oximetry 100 08/17/23 08:02 Oxygen Delivery Room Air 08/17/23 08:02 Temperature 98 F 08/17/23 08:02 Pulse Rate 63 08/17/23 10:01 Respiratory Rate 18 08/17/23 09:45 Blood Pressure 142/79 H 08/17/23 09:15 Pulse Oximetry 100 08/17/23 10:01 Oxygen Delivery Room Air 08/17/23 08:02 Medical Decision Making Vital Signs Vital Signs: Vital Signs Temperature 98 F 08/17/23 08:02 Pulse Rate 66 08/17/23 08:02 Respiratory Rate 20 08/17/23 08:02 Blood Pressure 132/74 08/17/23 08:02 Pulse
== END 2023-08-17 10:50 | disposition home or self-care (01) ==
PROVIDERS: Emergency Provider Emergency Medicine; PCP Internal Medicine
DX: R42 Dizziness and giddiness (principal); E78.5 Hyperlipidemia, unspecified; F41.9 Anxiety disorder, unspecified; F17.210 Nicotine dependence, cigarettes, uncomplicated; R94.31 Abnormal electrocardiogram [ECG] [EKG]
CPT/HCPCS: 36415; 80053; 85025; 93005; 96360; 99284; A9270; J7030

== ENCOUNTER 2023-08-24 08:04 | Emergency (ER) | payer OTHER, SELFPAY ==
[2023-08-24] VITALS (16 sets, daily range): BP systolic 131–162; BP diastolic 56–82; PULSE 65–84; RESP 16–20; TEMP 36.7; O2SAT 96–100
--- NOTE | ~2023-08-24 | CT_ITS ---
EXAMINATION: CT brain wo con INDICATION: Vertigo COMPARISON: None TECHNIQUE: Standard unenhanced head CT. The dose-length product (DLP) was 605.33 mGy-cm. The mA was a djusted according to patient size. Iterative reconstruction technique was employed. FINDINGS: No intracranial hemorrhage, acute infarction, or abnormal mass lesion. The ventricles are n ormal. No abnormal mass effect or midline shift. The lindsey-white matter differentiation is normal. The basal cisterns are patent. The orbits are normal. There is mild mucosal thickening of the paranasal sinuses. There are small mastoid effusions. IMPRESSION: 1. No acute intracranial abnormality. Reviewed, dictated and finalized at location F. AL SERVICE DIRECTOR
[2023-08-24 08:33] LABS: Basophils Percent Auto 0.4 % (0.2-1.2); Eosinophils Absolute Auto 0.1 K/mm3 (0-0.3); Eosinophils Percent Auto 0.7 % (0-4.4); Hematocrit 43.9 % (42.0-52.0); Hemoglobin 14.3 g/dL (14.0-18.0); Immature Granulocyte Absolute 0.05 K/mm3 (0.00-0.031); Immature Granulocyte Percent A 0.5 % (0-0.5); Lymphocytes Absolute Auto 1.35 K/mm3 (0.9-3.2); Mean Corpuscular HGB Conc 32.6 g/dl (32-36); Mean Corpuscular Hemoglobin 28.1 pg (26-34); Mean Corpuscular Volume 86.4 fl (80-100); Mean Platelet Volume 9.5 fl (7.4-10.4); Monocytes Absolute Auto 0.7 K/mm3 (0.1-0.6); Monocytes Percent Auto 6.5 % (2.6-8.5); Neutrophils Absolute Auto 8.2 K/mm3 (1.3-6.7); Neutrophils Percent Auto 78.9 % (45.5-73.1); Platelet Count Result 252 k/mm3 (150-375); Red Blood Count 5.08 M/mm3 (4.6-6.20); White Blood Count 10.4 K/mm3 (4.5-10.0)
--- NOTE | 2023-08-24 08:36 | ED.DIZZY ---
HPI - Dizziness General Chief Complaint: Dizziness Stated Complaint: dizzy History of Present Illness HPI Narrative: 58-year-old male presenting emergency department for evaluation of recurrent vertigo. Patient was evaluated last week and was diagnosed with vertigo. Patient was treated with meclizine and did feel improved. 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 Patient is opposed to taking the meclizine because it makes him tired. Other treatment options including benzodiazepines were discussed. Patient was willing to try dose of Valium to see if this helps with his symptoms. Patient was advised that he would still not be able to operate a forklift while taking the Valium. Patient reports that the current dizziness is significantly improved and denies any associated numbness or weakness. With the episode patient did have some nausea and vomiting that has also since resolved Related Data Home Medications Medication Instructions Recorded Confirmed amlodipine 5 mg tablet 5 mg PO DAILY 08/06/22 08/06/22 bupropion HCl 100 mg tablet,12 hr 100 mg PO Q12H 08/06/22 08/06/22 sustained-release Allergies Allergy/AdvReac Type Severity Reaction Status Date / Time fentanyl Allergy Unknown Verified 08/17/23 08:15 Review of Systems Review of Systems: All systems reviewed & are unremarkable except as noted in HPI and below PMFSH Past Medical History Medical History Anxiety Hyperlipidemia Family History Family History Mother Heart disease Father Heart disease Sibling Heart disease Social History Social History Smoking packs per day: 1 Smoking cigarettes per day: 20.0 Smoking status: Current every day smoker Tobacco type: cigarettes Drinks per week: 2 Substance use: never Substance use type: does not use Lack of Transportation: No Lack of Food: Never True Current Housing: I Have Housing Concerned About Future Housing: No Difficulty Paying Gas/Electric Bills: No Difficulty Paying for Meds: No Currently Unemployed: No Education: High School Diploma/GED Difficulty w/ Childcare or Family Care: No Spiritual care concerns: No Exam Narrative: APPEARANCE: Well appearing, no pain, no distress, well-nourished. HEAD: normocephalic, atraumatic. EYES: PERRLA/EOMI, conjunctivae clear. NOSE: Normal no drainage EARS:TMS clear with good light reflex. THROAT: Pharynx clear, no exudate. NECK: Supple. No adenopathy, no masses. RESPIRATORY: Airway patent, respirations nonlabored. Clear to auscultation bilaterally, no rales, rhonchi, wheezing. CARDIOVASCULAR: Regular rate and rhythm without murmurs rubs or gallops. ABDOMINAL: Soft, nontender, nondistended, normal bowel sounds MUSCULOSKELETAL: Moves all extremities. Strength/ROM intact, No edema, No calf tenderness. NEURO: Alert. Cranial nerves II through XII intact. Grossly intact SKIN: Warm, dry. Normal Color Course Course Emergency Course: 58-year-old male with previous diagnosis of vertigo present in the emergency department for recurrence of his vertigo. Patient was treated with Valium and meclizine in the emergency department does feel improved. CT ordered and showed no acute abnormality. Patient was encouraged to have close follow-up his primary care physician and with Neurology. Patient comfortable with plan with discharge and close follow-up. Vital Signs Vital signs: Vital Signs Temperature 98.1 F 08/24/23 08:04 Pulse Rate 78 08/24/23 08:04 Respiratory Rate 16 08/24/23 08:04 Blood Pressure 137/82 08/24/23 08:04 Pulse Oximetry 100 08/24/23 08:04 Temperature 98.1 F 08/24/23 08:04 Pulse Rate 70 08/24/23 11:01 Respirato
[2023-08-24] MEDS: diazePAM (*CRX) 5 MG TABLET PO (08:39)
[2023-08-24 08:45] LABS: Alanine Aminotransferase 12 U/L (6-50); Albumin Level 3.9 g/dL (3.5-5.1); Alkaline Phosphatase 93 U/L (38-126); Anion Gap 7 mmol/L (8-16); Aspartate Amino Transferase 19 U/L (17-59); Bilirubin,Total 0.6 mg/dL (0.2-1.3); Blood Urea Nitrogen 22 mg/dL (9-20); Calcium 9.4 mg/dL (8.4-10.2); Carbon Dioxide 25 mmol/L (22-30); Chloride 105 mmol/L (98-107); Estimated CRCL calculation 72 ml/min; Estimated Glomerular Filt Rate > 60; Glucose 102 mg/dL (65-110); Potassium 4.2 mmol/L (3.4-5.0); Sodium 137 mmol/L (137-145)
[2023-08-24] MEDS: MECLIZINE HCL 25 MG TABLET PO (10:31)
== END 2023-08-24 11:22 | disposition home or self-care (01) ==
PROVIDERS: Emergency Provider Emergency Medicine; PCP Internal Medicine
DX: R42 Dizziness and giddiness (principal); E78.5 Hyperlipidemia, unspecified; F41.9 Anxiety disorder, unspecified; F17.210 Nicotine dependence, cigarettes, uncomplicated; Z79.82 Long term (current) use of aspirin
CPT/HCPCS: 36415; 70450; 80053; 85025; 99284; A9270